=== PATIENT | male | born 1985 | race Caucasian/White ===

== ENCOUNTER 2018-03-31 23:24 | Emergency (ER) | payer SELFPAY ==
[~2018-03-31] VITALS: Ht 193 cm; Wt 126.0 kg
[2018-03-31 23:26] VITALS: BP 150/99
[2018-03-31] MEDS ORDERED: KETOROLAC 30 MG/1 ML ONE (23:57)
[2018-03-31] MEDS ORDERED: LORazepam 1MG TABLET ONE (23:58)
[2018-04-01] MEDS ORDERED: KETOROLAC 30 MG/1 ML IM ONE
[2018-04-01] MEDS ORDERED: LORazepam 1MG TABLET PO ONE
== END 2018-04-01 01:18 | disposition home or self-care (01) ==
LOC: ED 04-01 00:38
DX: R07.89 Other chest pain (principal); F17.210 Nicotine dependence, cigarettes, uncomplicated
CPT/HCPCS: 71046; 93005; 96372; 99284; 99406; J1885